=== PATIENT | female | born 1955 | race African-American/Black ===

== ENCOUNTER 2022-07-04 13:12 | Outpatient (CLI) | payer OTHER, MEDICAID | END 2022-07-04 13:13 | disposition home or self-care (01) | LOC: CSHULT 13:12 | PROVIDERS: ATTEND Internal Medicine Hematology & Oncology | DX: C50.812 Malignant neoplasm of overlapping sites of left female breast (principal); I51.9 Heart disease, unspecified | CPT/HCPCS: 93306 ==